=== PATIENT | female | born 1990 | race Caucasian/White ===

== ENCOUNTER → 2017-10-02 | Outpatient (CLI) | payer BC ==
--- NOTE | 2017-10-02 17:39 | Diagnostic Imaging Report ---
EXAMINATION: Pelvic ultrasound. INDICATION: Left ovarian pain. COMPARISON: There are no prior studies available for comparison. FINDINGS: The uterus is nongravid and not enlarged measuring 6.4 x 4.7 x 3.3 cm. The endometrial lining is thickened measuring 12 mm (normal 5 mm or less). This finding is nonspecific. Correlation with the patient's menstrual cycle would be recommended. There is no focal mass involving the uterus to suggest a fibroid. Both ovaries were identified. Each ovary contains a few subcentimeter follicles. There also appears to be a roughly 1 cm cyst arising from the right ovary. This does contain a few internal echoes suggesting that this cyst may be slightly complicated by infection and/or hemorrhage. There is no solid pelvic mass or free fluid collection noted. IMPRESSION: There is a small roughly 1 cm slightly complicated cyst associated with the right ovary. There is no acute pelvic abnormality noted otherwise. Dictated by: Dictated on workstation # [id number]
== END ==
LOC: RAD 14:28
PROVIDERS: ATTEND Nurse Practitioner Family
DX: N83.201 Unspecified ovarian cyst, right side (principal)
CPT/HCPCS: 76830; 76856

== ENCOUNTER 2021-01-15 11:09 | Emergency (ER) | payer BC ==
[~2021-01-15] VITALS: Ht 160 cm; Wt 68.0 kg
[2021-01-15 11:10] VITALS: BP 134/84
[2021-01-15] MEDS ORDERED: sulfamethoxazole (11:25)
--- NOTE | 2021-01-15 11:47 | ED GU-Female ---
General Chief Complaint: - Urinary Stated Complaint: UTI Nursing Triage Note: ARRIVED VIA AMB TO ROOM 06. CURRENTLY ON BACTRIM AND AZO FOR A UTI X5 DAYS. TODAY COMPLAINS OF DIZZINESS, HOT FLASHES, AND BURNING WITH URINATION. STATES URGENT CARE TOLD HER SHE WAS ON THE RIGHT MED ACCORDING TO HER CX REPORT. Source: patient Exam Limitations: no limitations History of Present Illness Date Seen by Provider: Jan 15, 2021 Time Seen by Provider: 11:45 Initial Comments To ER with reports of sudden onset of suprapubic discomfort, vaginal itching burning and whitish discharge. She denies nausea or vomiting. She had some flank pain yesterday but none today. She had a urinary tract infection diagnosed at urgent care on (today is Friday). She was prescribed Bactrim and was called by urgent care today to report that Bactrim is the correct antibiotic based on her culture report. Her symptoms seemed to improve until today when they suddenly recurred. Timing/Duration: constant Severity/Quality: moderate Location: unknown Activities at Onset: none Prior Genitourinary Problems: none Modifying Factors: Improves With Analgesics Allergies and Home Medications Allergies Coded Allergies: No Known Drug Allergies (Unverified , 06/01/16) Patient Home Medication List Home Medication List Reviewed: Yes Review of Systems Review of Systems Constitutional: see HPI EENTM: see HPI Respiratory: no symptoms reported Cardiovascular: no symptoms reported Genitourinary: see HPI, dysuria Musculoskeletal: no symptoms reported Skin: no symptoms reported Psychiatric/Neurological: No Symptoms Reported Endocrine: No Symptoms Reported Past Tvlvkry-Xcpyce-Lgfpvn Hx Patient Social History Tobacco Use?: No Substance use?: No Alcohol Use?: Yes Alcohol Frequency: Once in a while Immunizations Up To Date Tetanus Booster (TDap): Less than 5yrs Physical Exam Vital Signs Vital Signs - First Documented 01/15/21 11:10 Temp 36.1 Pulse 75 Resp 16 B/P (MAP) 134/84 (101) Pulse Ox 96 O2 Delivery Room Air Capillary Refill : Less Than 3 Seconds Height, Weight, BMI Height: 5'4" Weight: 125lbs. oz. 56.377399gs; 26.00 BMI Method:Estimated General Appearance: WD/WN, no apparent distress Neck: non-tender, full range of motion Cardiovascular: regular rate, rhythm, no murmur Respiratory: no respiratory distress, no accessory muscle use Gastrointestinal: normal bowel sounds, non tender, soft; No rebound, No tenderness Extremities: normal range of motion, non-tender Neurologic/Psychiatric: alert, normal mood/affect, oriented x 3 Skin: normal color, warm/dry Progress/Results/Core Measures Suspected Sepsis SIRS Temperature: Pulse: 75 Respiratory Rate: 16 Laboratory Tests 01/15/21 11:56: White Blood Count 6.2 Blood Pressure 134 /84 Mean: 101 Laboratory Tests 01/15/21 11:56: Creatinine 1.24, Platelet Count 306, Total Bilirubin 0.6 Results/Orders Lab Results Laboratory Tests Test 01/15/21 11:44 01/15/21 11:56 Range/Units Urine Color ORANGE Urine Clarity CLEAR Urine pH 5.5 5-9 Urine Specific [place] <=1.005 1.016-1.022 Urine Protein TRACE H NEGATIVE Urine Glucose (UA) TRACE H NEGATIVE Urine Ketones NEGATIVE NEGATIVE Urine Nitrite POSITIVE H NEGATIVE Urine Bilirubin 1+ H NEGATIVE Urine Urobilinogen 4.0 < = 1.0 MG/DL Urine Leukocyte Esterase NEGATIVE NEGATIVE Urine RBC (Auto) TRACE-I NEGATIVE Urine RBC RARE /HPF Urine WBC RARE /HPF Urine Squamous Epithelial Cells 2-5 /HPF Urine Crystals NONE /LPF Urine Bacteria TRACE /HPF Urine Casts NONE /LPF Urine Mucus NEGATIVE /LPF Urine Culture Indicated NO White Blood Count 6.2 4.3-11.0 10^3/uL Red Blood Count 4.32 3.80-5.11 10^6/uL Hemoglobin 13.9 11.5-16.0 g/dL Hematocrit 41 35-52 % Mean Corpuscular Volume 94 80-99 fL Mean Corpuscular Hemoglobin 32 25-34 pg Mean Corpuscular Hemoglobin Concent 34 32-36 g/dL Red Cell Distribution Width 11.7 10.0-14.5 % Platelet Count 306 130-400 10^3/uL Mean Platelet Volume 10.6 9.0-12.2 fL Immature Granulocyte % (Auto) 0 % Neutrophils (%) (Auto) 66 42-75 % Lymphocytes (%) (Auto) 23 12-44 % Monocytes (%) (Auto) 8 0-12 % Eosinophils (%) (Auto) 2 0-10 % Basophils (%) (Auto) 1 0-10 % Neutrophils # (Auto) 4.1 1.8-7.8 10^3/uL Lymphocytes # (Auto) 1.5 1.0-4.0 10^3/uL Monocytes # (Auto) 0.5 0.0-1.0 10^3/uL Eosinophils # (Auto) 0.1 0.0-0.3 10^3/uL Basophils # (Auto) 0.1 0.0-0.1 10^3/uL Immature Granulocyte # (Auto) 0.0 0.0-0.1 10^3/uL Sodium Level 135 135-145 MMOL/L Potassium Level 4.6 3.6-5.0 MMOL/L Chloride Level 103 98-107 MMOL/L Carbon Dioxide Level 22 21-32 MMOL/L Anion Gap 10 5-14 MMOL/L Blood Urea Nitrogen 15 7-18 MG/DL Creatinine 1.24 0.60-1.30 MG/DL Estimat Glomerular Filtration Rate 52 BUN/Creatinine Ratio 12 Glucose Level 90 70-105 MG/DL Calcium Level 9.5 8.5-10.1 MG/DL Corrected Calcium 8.5-10.1 MG/DL Total Bilirubin 0.6 0.1-1.0 MG/DL Aspartate Amino Transf (AST/SGOT) 30 5-34 U/L Alanine Aminotransferase (ALT/SGPT) 20 0-55 U/L Alkaline Phosphatase 56 40-136 U/L Total Protein 8.0 6.4-8.2 GM/DL Albumin 4.8 H 3.2-4.5 GM/DL My Orders Orders - LANCE DOMINGO APRN Ua Culture If Indicated (01/15/21 11:38) Cbc With Automated Diff (01/15/21 11:38) Comprehensive Metabolic Panel (01/15/21 11:38) Vital Signs/I&O 01/15/21 11:10 Temp 36.1 Pulse 75 Resp 16 B/P (MAP) 134/84 (101) Pulse Ox 96 O2 Delivery Room Air Capillary Refill : Less Than 3 Seconds 2 Blood Pressure Mean: 101 Departure Impression Primary Impression: Light-headedness Additional Impression: Vaginal itching Disposition: 01 HOME, SELF-CARE Condition: Stable Departure-Patient Inst. Decision time for Depature: 12:28 Referrals: [facility] (PCP/Family) Primary Care Physician Patient Instructions: NO INSTRUCTIONS GIVEN Add. Discharge Instructions: 1. Increase your fluid intake for the next few days. Take the Diflucan for the suspected yeast infection. Follow-up with your doctor next week. Return to ER for any worsening. All discharge instructions reviewed with patient and/or family. Voiced underst anding. Scripts Fluconazole (Diflucan) 150 Mg Tablet 150 MG PO DAILY, #3 TAB Prov: LANCE DOMINGO APRN 01/15/21 Work/School Note: Work Release Form Date Seen in the Emergency Department: Jan 15, 2021 Return to Work: Jan 16, 2021 LANCE DOMINGO APRN Jan 15, 2021 11:47
[2021-01-15 11:54] LABS: CLARITY,URINE CLEAR; COLOR,URINE ORANGE; GLUCOSE, URINE (UA) TRACE (NEGATIVE); KETONES,URINE NEGATIVE (NEGATIVE); LEUKOCYTE ESTERASE ,URINE NEGATIVE (NEGATIVE); NITRITE,URINE POSITIVE (NEGATIVE); PH,URINE 5.5 (5-9); PROTEIN,URINE TRACE (NEGATIVE)
[2021-01-15 12:04] LABS: BASOPHILS # (AUTO) 0.1 10^3/uL (0.0-0.1); BASOPHILS % (AUTO) 1 % (0-10); EOSINOPHILS # (AUTO) 0.1 10^3/uL (0.0-0.3); EOSINOPHILS % (AUTO) 2 % (0-10); HEMATOCRIT 41 % (35-52); HEMOGLOBIN 13.9 g/dL (11.5-16.0); LYMPHOCYTES # (AUTO) 1.5 10^3/uL (1.0-4.0); LYMPHOCYTES % (AUTO) 23 % (12-44); MEAN CORPUSCULAR HEMOGLOBIN 32 pg (25-34); MEAN CORPUSCULAR HGB CONC 34 g/dL (32-36); MEAN CORPUSCULAR VOLUME 94 fL (80-99); MEAN PLATELET VOLUME 10.6 fL (9.0-12.2); MONOCYTES # (AUTO) 0.5 10^3/uL (0.0-1.0); MONOCYTES % (AUTO) 8 % (0-12); NEUTROPHILS # (AUTO) 4.1 10^3/uL (1.8-7.8); NEUTROPHILS % (AUTO) 66 % (42-75); PLATELET COUNT 306 10^3/uL (130-400); WHITE BLOOD COUNT 6.2 10^3/uL (4.3-11.0)
[2021-01-15 12:07] LABS: BACTERIA,URINE TRACE /HPF; BILIRUBIN,URINE 1+ (NEGATIVE); RBC,URINE RARE /HPF; WBC,URINE RARE /HPF
[2021-01-15 12:17] LABS: ALBUMIN 4.8 GM/DL (3.2-4.5); CHLORIDE 103 MMOL/L (98-107); POTASSIUM 4.6 MMOL/L (3.6-5.0); SODIUM 135 MMOL/L (135-145)
[2021-01-15 12:18] LABS: CALCIUM 9.5 MG/DL (8.5-10.1)
[2021-01-15 12:19] LABS: GLUCOSE 90 MG/DL (70-105)
[2021-01-15 12:21] LABS: BILIRUBIN,TOTAL 0.6 MG/DL (0.1-1.0); CARBON DIOXIDE 22 MMOL/L (21-32)
[2021-01-15 12:23] LABS: ALKALINE PHOSPHATASE 56 U/L (40-136); CREATININE SERUM 1.24 MG/DL (0.60-1.30); GFR ESTIMATED 52
[2021-01-15 12:24] LABS: BUN/CREATININE RATIO 12
[2021-01-15 12:26] LABS: ALANINE AMINOTRANSFERASE 20 U/L (0-55)
[2021-01-15] MEDS ORDERED: FLUC150T PO (12:29)
== END 2021-01-15 12:32 | disposition home or self-care (01) ==
LOC: EDUNIT# 11:09 → ER 11:12
DX: L29.2 Pruritus vulvae (principal); R42 Dizziness and giddiness
CPT/HCPCS: 36415; 80053; 81000; 85025; 87088; 99282

== ENCOUNTER → 2021-06-26 | Outpatient (CLI) | payer BC ==
[~2021-06-26] MED LIST: FLUC150T PO; sulfamethoxazole
--- NOTE | 2021-06-26 13:54 | Diagnostic Imaging Report ---
INDICATION: survey. TECHNIQUE: Multiple real-time grayscale images were obtained over the gravid uterus. COMPARISON: None FINDINGS: There is a single live fetus in a cephalic presentation. heart rate was recorded at 150 bpm. Placenta is posterior. No previa is detected. Amniotic fluid volume is normal. Cervical length is 4.4 cm. kidneys, bladder and stomach are unremarkable. brain is unremarkable. There is a three-vessel cord with normal insertion. spine is unremarkable. heart anatomy is suboptimal due to position. Biometrical measurements are as follows: Biparietal 4.82 cm, age 20 weeks 5 days. Head circumference 18.83 cm, age 21 weeks 1 days. Abdominal circumference 14.82 cm, age 20 weeks 1 days. Femur length 3.59 cm, age 21 weeks 3 days. Sonographic estimate age: 20 weeks 6 days. Sonographic estimated date of delivery: 11/07/2020. Estimated Weight: 373 gm (+/- 55 gm). LMP percentile: 54%. heart rate: 150 beats per minute. number: 1 of 1. IMPRESSION: Single live IUP 20 weeks 6 days gestational age. Estimated date of confinement sonographically is 11/07/2020. A survey is unremarkable although heart anatomy was limited in evaluation due to position. Dictated by: Dictated on workstation # [id number]
== END ==
LOC: RAD 10:00
PROVIDERS: ATTEND Nurse Practitioner Women's Health
DX: Z34.02 Encounter for supervision of normal first pregnancy, second trimester (principal); Z3A.20 20 weeks gestation of pregnancy
CPT/HCPCS: 76805

== ENCOUNTER → 2021-10-23 | Outpatient (CLI) | payer BC ==
[~2021-10-23] MED LIST changes: +PREN1TAB44 PO
[2021-10-23 14:13] LABS: ALBUMIN 3.8 GM/DL (3.2-4.5); BILIRUBIN,TOTAL 0.3 MG/DL (0.1-1.0); CALCIUM 9.8 MG/DL (8.5-10.1); CREATININE SERUM 0.78 MG/DL (0.60-1.30); POTASSIUM 4.2 MMOL/L (3.6-5.0)
== END ==
LOC: LABNPT 12:25
PROVIDERS: ATTEND Obstetrics & Gynecology
DX: L29.9 Pruritus, unspecified (principal)
CPT/HCPCS: 80053; 83789

== ENCOUNTER 2021-10-31 12:21 | Outpatient (CLI) | payer BC ==
[~2021-10-31] VITALS: Ht 160 cm; Wt 84.5 kg
[~2021-10-31 12:21] MED LIST changes: -PREN1TAB44 PO
[2021-10-31 12:26] VITALS: BP 123/76
[2021-10-31 12:51] LABS: BILIRUBIN,URINE NEGATIVE (NEGATIVE); CLARITY,URINE CLEAR; COLOR,URINE YELLOW; GLUCOSE, URINE (UA) NEGATIVE (NEGATIVE); KETONES,URINE NEGATIVE (NEGATIVE); LEUKOCYTE ESTERASE ,URINE NEGATIVE (NEGATIVE); NITRITE,URINE NEGATIVE (NEGATIVE); PROTEIN,URINE NEGATIVE (NEGATIVE)
[2021-10-31 13:00] LABS: BACTERIA,URINE NEGATIVE /HPF; WBC,URINE RARE /HPF
[2021-10-31 13:08] VITALS: BP 123/76
[2021-10-31] MEDS ORDERED: PREN1TAB44 PO (13:12)
--- NOTE | 2021-11-01 08:18 | Physician Query-Final Dx ---
SHARIFA,11/01/21 0818: Clinic Account Progress/Dx Physician Query: Please give diagnosis Please include # weeks gestation Date of Service October 31, 2021 at 12:21 RADHA YE DO 11/01/21 0839: Clinic Account Progress/Dx DIAGNOSIS: Diagnosis 38 week IUP Leakage of fluid SHARIFA,JunNovember 01, 2021 08:18 RADHA YE DO November 01, 2021 08:39
== END 2021-10-31 13:30 | disposition home or self-care (01) ==
LOC: WSo 12:21 → LDRP 12:21 → WSo 13:30
PROVIDERS: ATTEND Obstetrics & Gynecology
DX: O42.92 Full-term premature rupture of membranes, unspecified as to length of time between rupture and onset of labor (principal); Z3A.38 38 weeks gestation of pregnancy
CPT/HCPCS: 81000; 84112; G0463; 99213

== ENCOUNTER 2021-11-11 19:00 | Inpatient (IN) | payer BC ==
[~2021-11-11] VITALS: Ht 160 cm; Wt 84.4 kg
[2021-11-11] VITALS (8 sets, daily range): BP systolic 86–134; BP diastolic 54–75
[~2021-11-11 19:00] MED LIST changes: +PREN1TAB44 PO
[2021-11-11] MEDS ORDERED: TERBUTALINE INJ 1 MG/ML (BRETHINE) AMP SC PRN (20:00)
[2021-11-11] MEDS ORDERED: LIDOCAINE/EPI 2% 1:200,00 (XYLOCAINE) 20 ML VIAL INJ PRN (20:00)
[2021-11-11] MEDS ORDERED: MINERAL OIL 30 ML TOP PRN (20:00)
[2021-11-11] MEDS ORDERED: NS IV 1000 ML 1,000 ML IV ONE (20:00)
[2021-11-11] MEDS ORDERED: NS IV 1000 ML 1,000 ML ONE (20:00)
[2021-11-11 20:05] LABS: BASOPHILS # (AUTO) 0.1 10^3/uL (0.0-0.1); BASOPHILS % (AUTO) 0 % (0-10); EOSINOPHILS # (AUTO) 0.1 10^3/uL (0.0-0.3); EOSINOPHILS % (AUTO) 1 % (0-10); HEMATOCRIT 34 % (35-52); HEMOGLOBIN 12.1 g/dL (11.5-16.0); LYMPHOCYTES % (AUTO) 23 % (12-44); MEAN CORPUSCULAR HEMOGLOBIN 33 pg (25-34); MEAN CORPUSCULAR HGB CONC 35 g/dL (32-36); MEAN CORPUSCULAR VOLUME 94 fL (80-99); MEAN PLATELET VOLUME 12.1 fL (9.0-12.2); MONOCYTES # (AUTO) 0.7 10^3/uL (0.0-1.0); MONOCYTES % (AUTO) 5 % (0-12); NEUTROPHILS # (AUTO) 9.4 10^3/uL (1.8-7.8); NEUTROPHILS % (AUTO) 70 % (42-75); PLATELET COUNT 222 10^3/uL (130-400); WHITE BLOOD COUNT 13.3 10^3/uL (4.3-11.0)
[2021-11-11] MEDS ORDERED: D5 LR IV SOLUTION 1,000 ML IV ONE (20:36)
[2021-11-11] MEDS: D5 LR IV SOLUTION 1,000 ML IV SCH (20:41)
[2021-11-11] MEDS: CATHETER FLUSH 10 ML SYR IV SCH (20:43)
[2021-11-11 21:44] LABS: BILIRUBIN,URINE NEGATIVE (NEGATIVE); CLARITY,URINE CLEAR; COLOR,URINE YELLOW; GLUCOSE, URINE (UA) NEGATIVE (NEGATIVE); KETONES,URINE NEGATIVE (NEGATIVE); LEUKOCYTE ESTERASE ,URINE NEGATIVE (NEGATIVE); NITRITE,URINE NEGATIVE (NEGATIVE); PROTEIN,URINE NEGATIVE (NEGATIVE)
[2021-11-11 21:53] LABS: BACTERIA,URINE TRACE /HPF
[2021-11-12] VITALS (85 sets, daily range): BP systolic 97–148; BP diastolic 53–86
[2021-11-12] MEDS: D5 LR IV SOLUTION 1,000 ML IV SCH ×3 (02:10→15:06)
[2021-11-12] MEDS: CATHETER FLUSH 10 ML SYR IV SCH ×2 (05:41→14:21)
[2021-11-12] MEDS ORDERED: OXYTOCIN PRE-MIX DRIP 500 ML IV SCH (08:00)
[2021-11-12] MEDS ORDERED: LIDOCAINE/EPI 2% 1:200,00 (XYLOCAINE) 10 ML VIAL INJ NR (08:30)
--- NOTE | 2021-11-12 09:19 | History & Physical-OB ---
OB - Chief Complaint & HPI Date/Time Date of Admission: Date of Admission: November 11, 2021 at 19:12 Date seen by a Provider: November 12, 2021 Time Seen by a Provider: 07:15 Chief Complaint/History OB-Reason for Admission/Chief: Induction of Labor Hx : 1 Hx Para: 0 Expected Date of Delivery: November 09, 2021 Gestational Age in Weeks: 40 Gestational Age in Days: 2 Indication for induction: post dates Admission Nurse Assessment Rev: Yes History of Labs GBS neg Allergies and Home Medications Allergies Coded Allergies: No Known Drug Allergies (Unverified , 06/01/16) Patient Home Medication List Home Medication List Reviewed: Yes Vit/Iron Fum/Folic AC ( Tablet) 28 Mg Iron-800 Mcg Tablet, 1 EACH PO DAILY, (Reported) Entered as Reported by: CYN TOBAR on 10/31/21 1312 OB - History Hx of Present Care: Yes Ultrasounds: Normal mid trimester US Obstetrical Complications: None Medical Complications: None Patient Past Medical History n/a Immunizations Influenza Vaccine Up-to-Date: Yes; Up-to-Date Tetanus Booster (TDap): Less than 5yrs OB - Admission Exam Physical Exam Vitals: Vital Signs 11/12/21 11/12/21 04:45 06:45 Temp 36.6 Pulse 71 Resp 16 B/P (MAP) 118/69 (85) O2 Delivery Room Air HEENT: NCAT Heart: Rhythm Normal Lungs: Clear Abdomen: Gravid Extremities: Normal Reflexes: Normal Cervical Dilatation: 1cm Effacement: 75% Station: -1 Membranes: Intact Heart Rate: 130's Accelerations: Accelerations Present Decelerations: No Decelerations Short Term Variability: Present Senior Living Variability: Average (6-25) Contractions on Admission: 6-10 Minutes Apart Intensity: Mild Garcia Scoring Tool (Modified) Dilation (cm): 1-2cm (1) Effacement (%): 51-79% (2) Descent/Station: -1,0 (2) Cervix Consistency: Soft (2) Cervix Position: Anterior (2) Subtract 1 point for: Nulliparity (-1) Garcia Score: 8 Labs Laboratory Tests Test 11/11/21 19:05 11/11/21 19:35 Range/Units Urine Color YELLOW Urine Clarity CLEAR Urine pH 6.0 5-9 Urine Specific [place] 1.020 1.016-1.022 Urine Protein NEGATIVE NEGATIVE Urine Glucose (UA) NEGATIVE NEGATIVE Urine Ketones NEGATIVE NEGATIVE Urine Nitrite NEGATIVE NEGATIVE Urine Bilirubin NEGATIVE NEGATIVE Urine Urobilinogen 0.2 < = 1.0 MG/DL Urine Leukocyte Esterase NEGATIVE NEGATIVE Urine RBC (Auto) NEGATIVE NEGATIVE Urine RBC NONE /HPF Urine WBC NONE /HPF Urine Squamous Epithelial Cells 2-5 /HPF Urine Crystals NONE /LPF Urine Bacteria TRACE /HPF Urine Casts NONE /LPF Urine Mucus NEGATIVE /LPF Urine Culture Indicated NO White Blood Count 13.3 H 4.3-11.0 10^3/uL Red Blood Count 3.64 L 3.80-5.11 10^6/uL Hemoglobin 12.1 11.5-16.0 g/dL Hematocrit 34 L 35-52 % Mean Corpuscular Volume 94 80-99 fL Mean Corpuscular Hemoglobin 33 25-34 pg Mean Corpuscular Hemoglobin Concent 35 32-36 g/dL Red Cell Distribution Width 12.5 10.0-14.5 % Platelet Count 222 130-400 10^3/uL Mean Platelet Volume 12.1 9.0-12.2 fL Immature Granulocyte % (Auto) 1 % Neutrophils (%) (Auto) 70 42-75 % Lymphocytes (%) (Auto) 23 12-44 % Monocytes (%) (Auto) 5 0-12 % Eosinophils (%) (Auto) 1 0-10 % Basophils (%) (Auto) 0 0-10 % Neutrophils # (Auto) 9.4 H 1.8-7.8 10^3/uL Lymphocytes # (Auto) 3.0 1.0-4.0 10^3/uL Monocytes # (Auto) 0.7 0.0-1.0 10^3/uL Eosinophils # (Auto) 0.1 0.0-0.3 10^3/uL Basophils # (Auto) 0.1 0.0-0.1 10^3/uL Immature Granulocyte # (Auto) 0.1 0.0-0.1 10^3/uL OB - Assessment/Plan/Diagnosis Assessment Assessment: induction of labor Admission Dx 31 yo @ 40 weeks Post date IOL GBS neg Admission Status: Inpatient Order (span 2 midnights) Reason for Inpatient Admission: IOL at 40 weeks Plan Plan: Induction Induction Method: per Misoprostol Protocol RADHA YE DO November 12, 2021 09:19
[2021-11-12] MEDS ORDERED: fentaNYL 2 mcg/ml BUPIVA 0.125 100 ML ONE (11:59)
[2021-11-12] MEDS ORDERED: fentaNYL INJ 100 MCG/2 ML AMP ONE (12:17)
[2021-11-12] MEDS ORDERED: BUPIVACAINE 0.25% 10 ML (SENSORCAINE) VIAL ONE (12:17)
[2021-11-12] MEDS ORDERED: LACTATED RINGERS 1,000 ML IV ONE (13:00)
[2021-11-12] MEDS: fentaNYL 2 mcg/ml BUPIVA 0.125 100 ML IV SCH ×2 (13:00→20:24)
[2021-11-12] MEDS ORDERED: CATHETER FLUSH 10 ML SYR IV PRN (13:00)
[2021-11-12] MEDS ORDERED: NALOXONE 0.4 MG/ML 1 ML (NARCAN) VIAL IV PRN ×2 (13:00→22:00)
[2021-11-12] MEDS ORDERED: LIDOCAINE/EPI 2% 1:200,00 (XYLOCAINE) 10 ML VIAL ONE (20:37)
[2021-11-12] MEDS ORDERED: OXYTOCIN PRE-MIX DRIP 500 ML IV ONE (20:38)
--- NOTE | 2021-11-12 21:54 | OB Labor & Delivery Record ---
L&D History Date of Service Date of Service: November 12, 2021 History Expected Date of Delivery: November 09, 2021 Gestational Age in Weeks: 40 Hx : 1 Hx Para: 0 Complications Events: Routine care Operative Indications (Cesarea: N/A-Vaginal Delivery Intrapartal Events: None L&D Stage1 Stage One Onset of Labor - Date: November 12, 2021 Monitors and Tracing Monitor Mode: External Heart Rate: 140 Monitor Accelerations: Uniform Monitor Decelerations: None Station: -2 Retirement Variability: Average (6-10) Short Term Variability: Present Presentation: Vertex Vital Signs VS - Last 72 Hours, by Label 11/11/21 11/11/21 11/11/21 11/11/21 19:11 19:11 20:45 21:15 Temp 36.7 36.7 Pulse 127 127 74 75 Resp 20 20 18 18 B/P (MAP) 134/75 (94) 121/73 (89) 111/55 (73) Pulse Ox 97 97 O2 Delivery Room Air Room Air Room Air Room Air 11/11/21 11/11/21 11/11/21 11/11/21 21:45 22:15 22:45 23:15 Temp 36.8 Pulse 76 65 66 76 Resp 16 16 16 16 B/P (MAP) 104/55 (71) 101/55 (70) 86/54 (65) 106/57 (73) O2 Delivery Room Air Room Air Room Air Room Air 11/11/21 11/12/21 11/12/21 11/12/21 23:45 00:15 00:45 01:15 Pulse 73 64 61 60 Resp 16 16 16 16 B/P (MAP) 102/59 (73) 101/61 (74) 106/67 (80) 119/79 (92) O2 Delivery Room Air Room Air Room Air Room Air 11/12/21 11/12/21 11/12/21 11/12/21 01:45 02:15 02:45 03:15 Temp 36.6 Pulse 66 58 58 61 Resp 16 16 16 16 B/P (MAP) 116/72 (87) 114/67 (83) 119/61 (80) 112/65 (81) O2 Delivery Room Air Room Air Room Air Room Air 11/12/21 11/12/21 11/12/2122 03:45 04:15 04:45 05:15 Temp 36.6 Pulse 43 65 40 61 Resp 16 16 16 16 B/P (MAP) 119/69 (86) 132/61 (84) 120/74 (89) 120/68 (85) O2 Delivery Room Air Room Air Room Air Room Air 11/12/21 11/12/21 11/12/21 11/12/21 05:45 06:15 06:45 07:15 Temp 36.8 Pulse 67 65 71 67 Resp 16 16 16 18 B/P (MAP) 99/54 (69) 97/53 (68) 118/69 (85) 108/67 (81) O2 Delivery Room Air Room Air Room Air Room Air 11/12/21 11/12/21 11/12/21 11/12/21 07:45 08:15 08:30 08:45 Pulse 69 60 74 66 Resp 18 18 18 18 B/P (MAP) 129/75 (93) 129/76 (93) 122/80 (94) 135/81 (99) Pulse Ox 98 O2 Delivery Room Air Room Air Room Air Room Air 11/12/21 11/12/21 11/12/21 11/12/21 09:00 09:15 09:30 09:45 Temp 36.6 Pulse 66 56 57 56 Resp 18 18 18 18 B/P (MAP) 129/86 (100) 128/78 (95) 129/84 (99) 121/74 (90) O2 Delivery Room Air Room Air Room Air Room Air 11/12/21 11/12/21 11/12/21 11/12/21 10:00 10:15 10:30 10:45 Pulse 76 42 63 69 Resp 20 20 20 20 B/P (MAP) 141/67 (91) 133/71 (91) 120/72 (88) 122/75 (91) O2 Delivery Room Air Room Air Room Air Room Air 11/12/21 11/12/21 11/12/21 11/12/21 11:00 11:15 11:30 12:00 Pulse 71 73 70 75 Resp 20 20 20 20 B/P (MAP) 122/75 (91) 136/78 (97) 124/77 (93) 132/78 (96) O2 Delivery Room Air Room Air Room Air Room Air 11/12/21 11/12/21 11/12/21 11/12/21 12:15 12:30 12:30 12:33 Pulse 72 72 83 83 Resp 20 20 20 20 B/P (MAP) 133/81 (98) 133/81 (98) 125/83 (97) 125/83 (97) Pulse Ox 100 O2 Delivery Room Air Room Air Room Air Room Air 11/12/21 11/12/21 11/12/21 11/12/21 12:36 12:39 12:41 12:44 Temp 36.7 Pulse 83 86 83 73 Resp 20 20 20 20 B/P (MAP) 122/77 (92) 126/72 (90) 139/55 (83) 106/66 (79) Pulse Ox 100 100 99 100 O2 Delivery Room Air Room Air Room Air Room Air 11/12/21 11/12/21 11/12/21 11/12/21 12:47 12:50 12:53 12:56 Pulse 76 90 82 86 Resp 20 20 20 20 B/P (MAP) 120/70 (87) 124/73 (90) 123/70 (87) 124/74 (91) Pulse Ox 100 100 98 98 O2 Delivery Room Air Room Air Room Air Room Air 11/12/21 11/12/21 11/12/21 11/12/21 12:59 13:15 13:30 13:45 Pulse 93 97 77 73 Resp 20 20 20 20 B/P (MAP) 131/77 (95) 133/79 (97) 129/68 (88) 128/70 (89) Pulse Ox 97 99 98 98 O2 Delivery Room Air Room Air Room Air Room Air 11/12/21 11/12/21 11/12/21 11/12/21 14:00 14:15 14:30 14:45 Pulse 77 69 68 80 Resp 20 20 20 20 B/P (MAP) 133/71 (91) 125/73 (90) 119/76 (90) 120/79 (93) Pulse Ox 98 98 100 100 O2 Delivery Room Air Room Air Room Air Room Air 11/12/21 11/12/21 11/12/21 11/12/21 15:00 15:15 15:30 15:45 Pulse 73 76 66 72 Resp 20 20 20 20 B/P (MAP) 117/70 (86) 126/78 (94) 125/73 (90) 120/70 (87) Pulse Ox 99 99 98 98 O2 Delivery Room Air Room Air Room Air Room Air 11/12/21 11/12/21 11/12/21 11/12/21 16:00 16:15 16:30 16:45 Temp 36.4 Pulse 83 76 76 77 Resp 20 20 20 20 B/P (MAP) 122/71 (88) 127/73 (91) 121/75 (90) 121/73 (89) Pulse Ox 99 99 99 100 O2 Delivery Room Air Room Air Room Air Room Air 11/12/21 11/12/21 11/12/21 11/12/21 17:00 17:15 17:30 17:45 Pulse 71 75 91 77 Resp 20 20 20 20 B/P (MAP) 129/60 (83) 125/66 (85) 126/73 (90) 112/65 (81) O2 Delivery Room Air Room Air Room Air Room Air 11/12/21 11/12/21 11/12/21 11/12/21 18:00 18:15 18:30 18:45 Pulse 86 85 77 78 Resp 20 20 20 20 B/P (MAP) 123/76 (92) 118/67 (84) 120/68 (85) 115/63 (80) O2 Delivery Room Air Room Air Room Air Room Air 11/12/21 11/12/21 11/12/21 11/12/21 19:00 19:15 19:30 19:45 Temp 37.4 Pulse 82 85 108 97 Resp 20 20 18 20 B/P (MAP) 123/60 (81) 125/64 (84) 133/78 (96) 124/71 (88) Pulse Ox 100 99 99 O2 Delivery Room Air Room Air Room Air Room Air 11/12/21 11/12/21 11/12/21 11/12/21 20:00 20:15 20:30 20:45 Pulse 92 86 83 98 Resp 18 20 20 20 B/P (MAP) 121/73 (89) 120/73 (89) 119/62 (81) 128/78 (95) Pulse Ox 100 99 99 99 O2 Delivery Room Air Room Air Room Air Room Air Rupture of Membranes Spontaneous Ruture of Membrane: No Amniotic Membrane Rupture Time: 0720 Amniotic Membrane Fluid Desc.: Clear Vaginal Bleeding Description: Normal Show Induction/Anesthesia Epidural Cath Placement - Time: 1233 Progress/Notes Patient admitted for post dates IOL last night, Misoprostol given 100 mcg x 1 dose followed by 4 hrs later 1 dose of 50 mg, she then was allow to rest overnight. AROM performed this AM, clear fluid noted. Pitocin augmentation started, and the pateint progressed with an epidural to complete and +1 station. L&D Stage2 Stage Two Stage II Date: November 12, 2021 Monitors and Tracing Monitor Mode: External Heart Rate: 140 Monitor Accelerations: Uniform Monitor Decelerations: Variable Retirement Variability: Average (6-10) Short Term Variability: Present Position: Right Occiput Anterior Presentation: Vertex Cord Descript/Complications Cord Vessel Description: 3 Vessels Delivery Type Infant Delivery Method: Spontaneous Vaginal Anterior Shoulder: Left Episiotomy/Perineal Laceration Laceraction(s)/Extensions: Yes Episiotomy Description: Midline, Vaginal Extension/lac, 1st degree Degree (describe repair) vaginal laceration repaired using 3-0 rapide in usual fashion. Condition of Delivery 1 minute Comment: 8 5 minute Comment: 9 Notes Live female infant weight pending Condition of Infant Condition of : Living Exam: No Observed Abnormalities Resuscitation Resuscitation: N/A - Spontaneous Resp L&D Stage3 Stage Three Stage III Date: November 12, 2021 Pictocin Pitocin Administration mu/min: 10 Pitocin ml/hr: 10 Pitocin Administration Comment: 30 mu wide open after delivery of placenta Placenta Delivery Placenta Delivery: Spontaneous Delivery Summary Summary Estimated blood loss (mL): 300 Attending at delivery: Rdaha Ye DO Condition of Delivery Examined: Cervix Examined, Uterus Explored Post Hemorrhage: No Condition of Mother stable Condition of Infant (s) stable RADHA YE DO November 12, 2021 21:54
[2021-11-12] MEDS: OXYTOCIN PRE-MIX DRIP 500 ML IV SCH ×2 (22:00→22:11)
[2021-11-12] MEDS ORDERED: DIBUCAINE 1% OINTMENT 30 GM TUBE TOP PRN (22:00)
[2021-11-12] MEDS ORDERED: BENZOCAINE/MENTHOL (DERMOPLAST) 56 ML CAN TP PRN (22:00)
[2021-11-12] MEDS ORDERED: WITCH HAZEL(TUCKS) 40 EA JAR TOP PRN (22:00)
[2021-11-12] MEDS ORDERED: MEASLES,MUMPS,RUBELLA 1 EA INJ SQ ONE (22:00)
[2021-11-12] MEDS ORDERED: HYDROcodone/APAP 5 MG/325 MG (LORTAB) TAB PO PRN (22:00)
[2021-11-12] MEDS ORDERED: TETANUS,DIPTH,PERTUSS P/F (BOOSTRIX) 0.5 ML VIAL IM ONE (22:00)
[2021-11-12] MEDS ORDERED: CATHETER FLUSH 10 ML SYR IV SCH (22:00)
[2021-11-13] VITALS: BP 122/58
[2021-11-13] MEDS: IBUPROFEN 600 MG (MOTRIN) TAB PO SCH ×5 (00:03→23:30)
[2021-11-13 04:00] VITALS: BP 114/63
[2021-11-13 05:43] LABS: BASOPHILS # (AUTO) 0.1 10^3/uL (0.0-0.1); BASOPHILS % (AUTO) 0 % (0-10); EOSINOPHILS # (AUTO) 0.1 10^3/uL (0.0-0.3); EOSINOPHILS % (AUTO) 0 % (0-10); HEMATOCRIT 33 % (35-52); HEMOGLOBIN 11.5 g/dL (11.5-16.0); LYMPHOCYTES # (AUTO) 2.4 10^3/uL (1.0-4.0); LYMPHOCYTES % (AUTO) 12 % (12-44); MEAN CORPUSCULAR HEMOGLOBIN 34 pg (25-34); MEAN CORPUSCULAR HGB CONC 35 g/dL (32-36); MEAN CORPUSCULAR VOLUME 95 fL (80-99); MEAN PLATELET VOLUME 11.9 fL (9.0-12.2); MONOCYTES # (AUTO) 1.4 10^3/uL (0.0-1.0); MONOCYTES % (AUTO) 7 % (0-12); NEUTROPHILS # (AUTO) 16.5 10^3/uL (1.8-7.8); NEUTROPHILS % (AUTO) 80 % (42-75); PLATELET COUNT 183 10^3/uL (130-400); WHITE BLOOD COUNT 20.7 10^3/uL (4.3-11.0)
[2021-11-13 09:00] VITALS: BP 117/67
[2021-11-13] MEDS: FERROUS SULF 325 MG (IRON) TAB PO SCH (09:31)
[2021-11-13] MEDS: DOCUSATE SODIUM 100 MG (COLACE) CAP PO SCH ×2 (09:31→20:37)
[2021-11-13] MEDS: PRENATAL VITAMIN 1 EA TAB PO SCH (09:32)
--- NOTE | 2021-11-13 09:55 | Postpartum Progress Note ---
Note Note Day # 1 Subjective: Patient is without complaints. Ambulating, voiding. Tolerating a regular diet without nausea or vomiting. Normal lochia. Pain is well controlled with oral pain medications. Physical Exam: General - Alert and oriented, no apparent distress Abdomen - Soft, appropriately tender to palpation, non-distended, fundus firm at umbilicus Extremities - no edema, negative Claire's bilaterally Assessment: Post- day # 1, status post vaginal delivery. Recovering well, hemodynamically stable Acute blood loss anemia Plan: Routine care. Encourage breast feeding. Encourage ambulation. Ferrous sulfate supplementation. Plan for discharge tomorrow Vitals - Labs Vital Signs - I&O Vital Signs Date Time Temp Pulse Resp B/P (MAP) Pulse Ox O2 Delivery O2 Flow Rate FiO2 11/13/21 04:00 36.8 92 20 114/63 (80) 99 Room Air 11/13/21 00:00 36.7 100 20 122/58 (79) Room Air 11/12/21 23:30 104 20 124/59 (80) Room Air 11/12/21 23:15 36.8 123 20 126/61 (82) Room Air 11/12/21 23:01 96 20 127/62 (83) Room Air 11/12/21 22:46 37.4 98 20 148/78 (101) Room Air 11/12/21 22:31 37.4 98 20 140/65 (90) Room Air 11/12/21 22:16 115 20 139/55 (83) Room Air 11/12/21 22:01 37.6 118 20 144/69 (94) Room Air 11/12/21 21:46 127 20 138/71 (93) Room Air 11/12/21 21:30 133 20 124/58 (80) Room Air 11/12/21 21:15 107 20 119/74 (89) Room Air 11/12/21 21:00 37.2 95 20 126/79 (95) 100 Room Air 11/12/21 20:45 98 20 128/78 (95) 99 Room Air 11/12/21 20:30 83 20 119/62 (81) 99 Room Air 11/12/21 20:15 86 20 120/73 (89) 99 Room Air 11/12/21 20:00 92 18 121/73 (89) 100 Room Air 11/12/21 19:45 97 20 124/71 (88) 99 Room Air 11/12/21 19:30 108 18 133/78 (96) 99 Room Air 11/12/21 19:15 37.4 85 20 125/64 (84) 100 Room Air 11/12/21 19:00 82 20 123/60 (81) Room Air 11/12/21 18:45 78 20 115/63 (80) Room Air 11/12/21 18:30 77 20 120/68 (85) Room Air 11/12/21 18:15 85 20 118/67 (84) Room Air 11/12/21 18:00 86 20 123/76 (92) Room Air 11/12/21 17:45 77 20 112/65 (81) Room Air 11/12/21 17:30 91 20 126/73 (90) Room Air 11/12/21 17:15 75 20 125/66 (85) Room Air 11/12/21 17:00 71 20 129/60 (83) Room Air 11/12/21 16:45 36.4 77 20 121/73 (89) 100 Room Air 11/12/21 16:30 76 20 121/75 (90) 99 Room Air 11/12/21 16:15 76 20 127/73 (91) 99 Room Air 11/12/21 16:00 83 20 122/71 (88) 99 Room Air 11/12/21 15:45 72 20 120/70 (87) 98 Room Air 11/12/21 15:30 66 20 125/73 (90) 98 Room Air 11/12/21 15:15 76 20 126/78 (94) 99 Room Air 11/12/21 15:00 73 20 117/70 (86) 99 Room Air 11/12/21 14:45 80 20 120/79 (93) 100 Room Air 11/12/21 14:30 68 20 119/76 (90) 100 Room Air 11/12/21 14:15 69 20 125/73 (90) 98 Room Air 11/12/21 14:00 77 20 133/71 (91) 98 Room Air 11/12/21 13:45 73 20 128/70 (89) 98 Room Air 11/12/21 13:30 77 20 129/68 (88) 98 Room Air 11/12/21 13:15 97 20 133/79 (97) 99 Room Air 11/12/21 12:59 93 20 131/77 (95) 97 Room Air 11/12/21 12:56 86 20 124/74 (91) 98 Room Air 11/12/21 12:53 82 20 123/70 (87) 98 Room Air 11/12/21 12:50 90 20 124/73 (90) 100 Room Air 11/12/21 12:47 76 20 120/70 (87) 100 Room Air 11/12/21 12:44 73 20 106/66 (79) 100 Room Air 11/12/21 12:41 36.7 83 20 139/55 (83) 99 Room Air 11/12/21 12:39 86 20 126/72 (90) 100 Room Air 11/12/21 12:36 83 20 122/77 (92) 100 Room Air 11/12/21 12:33 83 20 125/83 (97) 100 Room Air 11/12/21 12:30 83 20 125/83 (97) Room Air 11/12/21 12:30 72 20 133/81 (98) Room Air 11/12/21 12:15 72 20 133/81 (98) Room Air 11/12/21 12:00 75 20 132/78 (96) Room Air 11/12/21 11:30 70 20 124/77 (93) Room Air 11/12/21 11:15 73 20 136/78 (97) Room Air 11/12/21 11:00 71 20 122/75 (91) Room Air 11/12/21 10:45 69 20 122/75 (91) Room Air 11/12/21 10:30 63 20 120/72 (88) Room Air 11/12/21 10:15 42 20 133/71 (91) Room Air 11/12/21 10:00 76 20 141/67 (91) Room Air I & O 11/13/21 07:00 Intake Total 5135 ml Output Total 0 ml Balance 5135 ml Labs Laboratory Tests 11/13/21 05:09: White Blood Count 20.7H, Red Blood Count 3.43L, Hemoglobin 11.5, Hematocrit 33L, Mean Corpuscular Volume 95, Mean Corpuscular Hemoglobin 34, Mean Corpuscular Hemoglobin Concent 35, Red Cell Distribution Width 12.4, Platelet Count 183, Mean Platelet Volume 11.9, Immature Granulocyte % (Auto) 1, Neutrophils (%) (Auto) 80H, Lymphocytes (%) (Auto) 12, Monocytes (%) (Auto) 7, Eosinophils (%) (Auto) 0, Basophils (%) (Auto) 0, Neutrophils # (Auto) 16.5H, Lymphocytes # (Auto) 2.4, Monocytes # (Auto) 1.4H, Eosinophils # (Auto) 0.1, Basophils # (Auto) 0.1, Immature Granulocyte # (Auto) 0.2H DELMY BERRIOS MANAGER CARE MANAGEMENT November 13, 2021 09:55
--- NOTE | 2021-11-13 10:11 | Anesthesia-Regional Post-Op ---
Regional Patient Condition Mental Status: Alert, Oriented x3 Circulation: Same as Pre-Op Headache: Absent Sensation: Full Recovery Motor Block: Absent Post Op Complications Complications None Follow Up Care/Instructions Patient Instructions None needed. Anesthesia/Patient Condition Patient is doing well, no complaints, stable vital signs, no apparent adverse anesthesia problems. No complications reported per nursing. MARTIN DUGGAN CRNA November 13, 2021 10:11
[2021-11-13 12:15] VITALS: BP 114/58
[2021-11-13 16:25] VITALS: BP 123/63
[2021-11-13 20:12] VITALS: BP 122/66
[2021-11-14] VITALS: BP 126/71
[2021-11-14] MEDS: IBUPROFEN 600 MG (MOTRIN) TAB PO SCH (05:59)
[2021-11-14 06:05] VITALS: BP 119/55
[2021-11-14 07:35] VITALS: BP 116/67
[2021-11-14] MEDS: DOCUSATE SODIUM 100 MG (COLACE) CAP PO SCH (08:01)
[2021-11-14] MEDS: PRENATAL VITAMIN 1 EA TAB PO SCH (08:01)
[2021-11-14] MEDS: FERROUS SULF 325 MG (IRON) TAB PO SCH (08:01)
--- NOTE | 2021-11-14 08:45 | Discharge Inst-Women's Service ---
Discharge Inst-Women's Serv Depart Medication/Instructions New, Converted or Re-Newed RX: Transmitted to Pharmacy Final Diagnosis PPD 2 NVD Problems Reviewed?: Yes Consults/Follow Up Additional Follow Up: Yes Orders/Referrals Dr. Ye in 6 weeks Activity Activity: Activity as Tolerated Driving Instructions: No Driving for 1 Week NO SMOKING: NO SMOKING Nothing Inside Vagina: No Douching, No Robinson, No Tampons Diet Discharge Diet: No Restrictions Symptoms to Report to : Bleeding Excessive, Pain Increased, Fever Over 101 Degrees F, Vaginal Bleeding Increase, Questions/Concerns For Any Problems or Questions: Contact Your Physician RADHA YE DO November 14, 2021 8:45 am
[2021-11-14] MEDS ORDERED: DOCU100C37 PO (08:46)
[2021-11-14] MEDS ORDERED: BENZ78AE5 TP (08:46)
[2021-11-14] MEDS ORDERED: ACHD5005 PO ×2 (08:46→11:12)
[2021-11-14] MEDS ORDERED: IBUP-844 PO (08:46)
--- NOTE | 2021-11-14 08:47 | Postpartum Progress Note ---
Note Note Day # 2 Subjective: Patient is without complaints. Ambulating, voiding. Tolerating a regular diet without nausea or vomiting. Normal lochia. Pain is well controlled with oral pain medications. Objective: Physical Exam: General - Alert and oriented, no apparent distress Abdomen - Soft, appropriately tender to palpation, non-distended, fundus firm at umbilicus Extremities - no edema, negative Claire's bilaterally Assessment: PPD 2 NVD Plan: Routine care. Encourage breast feeding. Encourage ambulation. Ferrous sulfate supplementation. Plan for discharge today Vitals - Labs Vital Signs - I&O Vital Signs Date Time Temp Pulse Resp B/P (MAP) Pulse Ox O2 Delivery O2 Flow Rate FiO2 11/14/21 07:35 36.5 76 18 116/67 (83) 98 Room Air 11/14/21 06:05 36.3 89 18 119/55 (76) 98 Room Air 11/14/21 00:00 36.4 80 18 126/71 (89) 98 Room Air 11/13/21 20:12 36.2 53 18 122/66 (84) 98 Room Air 11/13/21 16:25 36.4 66 18 123/63 (83) 97 Room Air 11/13/21 12:15 36.4 95 18 114/58 (76) 97 Room Air 11/13/21 09:00 36.4 87 18 117/67 (84) 96 Room Air RADHA YE DO November 14, 2021 8:47 am
[2021-11-14 09:14] VITALS: BP 116/67
== END 2021-11-14 10:45 | disposition home or self-care (01) | DRG 806 ==
LOC: LDRP 19:12
PROVIDERS: ADMIT Obstetrics & Gynecology; ATTEND Obstetrics & Gynecology
PROC: 10E0XZZ Delivery of Products of Conception, External Approach (ICD-10-PCS; principal; 2021-11-12)
PROC: 10907ZC Drainage of Amniotic Fluid, Therapeutic from Products of Conception, Via Natural or Artificial Opening (ICD-10-PCS; 2021-11-12)
PROC: 0HQ9XZZ Repair Perineum Skin, External Approach (ICD-10-PCS; 2021-11-12)
DX: O48.0 Post-term pregnancy (principal); D62 Acute posthemorrhagic anemia; Z37.0 Single live birth; Z3A.40 40 weeks gestation of pregnancy; O70.0 First degree perineal laceration during delivery; O90.81 Anemia of the puerperium
CPT/HCPCS: 36415; 81000; 85025; 86850; 86900; 86901

== ENCOUNTER 2022-11-24 08:44 | Emergency (ER) | payer BC ==
[~2022-11-24 08:44] MED LIST changes: +ACHD5005 PO; +BENZ78AE5 TP; +DOCU100C37 PO; +IBUP-844 PO
[2022-11-24 08:59] LABS: CLARITY,URINE CLOUDY; COLOR,URINE RED; GLUCOSE, URINE (UA) TRACE (NEGATIVE); KETONES,URINE TRACE (NEGATIVE); LEUKOCYTE ESTERASE ,URINE 2+ (NEGATIVE); NITRITE,URINE POSITIVE (NEGATIVE); PROTEIN,URINE 3+ (NEGATIVE)
--- NOTE | 2022-11-24 09:01 | ED GU-Female ---
General Chief Complaint: - Reproductive Stated Complaint: PAIN WITH URINATION Nursing Triage Note: PT AMB TO [facility] 7 WITH COMPLAINT OF CHILLS, BURNING WHEN URINATING AT THAT STARTED LAST NIGHT. Source: patient Exam Limitations: no limitations History of Present Illness Date Seen by Provider: November 24, 2022 Time Seen by Provider: 08:52 Initial Comments 32yo female to the ER with a complaint of burning with urination. SHe states she noticed symptoms yesterday afternoon. She has had a little "chills" but no measured fever. No nausea or abdominal pain. Post 1 year. Started menstrual period 2 days ago. No abnormal vaginal discharge or itching. No other complaints. Timing/Duration: yesterday Severity/Quality: mild Location: urethral Radiation: none Activities at Onset: none Prior Genitourinary Problems: similar symptoms (x1) Sexual [place] History: single partner Associated Symptoms: fever/chills (chills without fever) Allergies and Home Medications Allergies Coded Allergies: No Known Drug Allergies (Unverified , 06/01/16) Patient Home Medication List Home Medication List Reviewed: Yes Benzocaine/Menthol (Dermoplast Pain Relieving [place]) 20 %-0.5 % Aerosol, 56 EA TP UD PRN for PAIN- SEE INSTRUCTIONS Prescribed by: RADHA YE on 11/14/21 0846 Docusate Sodium (Docusate Sodium) 100 Mg Capsule, 100 MG PO BID PRN for CONSTIPATION-1ST LINE Prescribed by: RADHA YE on 11/14/21 0846 Hydrocodone Bit/Acetaminophen (HYDROcodone/APAP 5 MG/325 MG TAB) 1 Tab Tab, 1 TAB PO Q4H PRN for PAIN-BREAKTHROUGH Prescribed by: RADHA YE on 11/14/21 1113 Ibuprofen (Ibu) 600 Mg Tablet, 600 MG PO Q6HR Prescribed by: RADHA YE on 11/14/21 0846 Vit/Iron Fum/Folic AC ( Tablet) 28 Mg Iron-800 Mcg Tablet, 1 EACH PO DAILY, (Reported) Entered as Reported by: CYN TOBAR on 10/31/21 1312 Review of Systems Review of Systems Constitutional: see HPI, chills EENTM: no symptoms reported Respiratory: no symptoms reported Cardiovascular: no symptoms reported Gastrointestinal: no symptoms reported Genitourinary: burning : No LMP: November 22, 2022 Musculoskeletal: no symptoms reported All Other Systemes Reviewed Negative Unless Noted: Yes Past Dpneknj-Rmnjty-Zrhoyo Hx Patient Social History Tobacco Use?: No Use of E-Cig and/or Vaping dev: No Substance use?: No Alcohol Use?: No Pt feels they are or have been: No Immunizations Up To Date Tetanus Booster (TDap): Less than 5yrs Physical Exam Vital Signs Vital Signs - First Documented 11/24/22 08:47 Temp 36.0 Pulse 83 Resp 16 B/P (MAP) 117/82 (94) Pulse Ox 100 O2 Delivery Room Air Capillary Refill : Less Than 3 Seconds Height, Weight, BMI Height: 5'4" Weight: 125lbs. oz. [id number]; 32.96 BMI Method:Estimated General Appearance: WD/WN, no apparent distress HEENT: PERRL/EOMI Cardiovascular: regular rate, rhythm Respiratory: lungs clear, normal breath sounds, no respiratory distress, no accessory muscle use Extremities: normal range of motion Neurologic/Psychiatric: alert, normal mood/affect Skin: normal color, warm/dry Progress/Results/Core Measures Suspected Sepsis SIRS Temperature: Pulse: 83 Respiratory Rate: 16 Blood Pressure 117 /82 Mean: 94 Results/Orders Lab Results Laboratory Tests Test 11/24/22 08:49 Range/Units Urine Color RED H Urine Clarity CLOUDY Urine pH 7.0 5-9 Urine Specific Fisher 1.020 1.016-1.022 Urine Protein 3+ H NEGATIVE Urine Glucose (UA) TRACE H NEGATIVE Urine Ketones TRACE H NEGATIVE Urine Nitrite POSITIVE H NEGATIVE Urine Bilirubin 1+ H NEGATIVE Urine Urobilinogen 2.0 < = 1.0 MG/DL Urine Leukocyte Esterase 2+ H NEGATIVE Urine RBC (Auto) 3+ H NEGATIVE Urine RBC TNTC H /HPF Urine WBC 25-50 H /HPF Urine Squamous Epithelial Cells 2-5 /HPF Urine Crystals NONE /LPF Urine Bacteria TRACE /HPF Urine Casts NONE /LPF Urine Mucus NEGATIVE /LPF Urine Culture Indicated YES My Orders Orders - ELEUTERIO DURAN MD Urinalysis (11/24/22 08:53) Urine Culture (11/24/22 08:49) Vital Signs/I&O 11/24/22 08:47 Temp 36.0 Pulse 83 Resp 16 B/P (MAP) 117/82 (94) Pulse Ox 100 O2 Delivery Room Air Capillary Refill : Less Than 3 Seconds Blood Pressure Mean: 94 Departure Impression Primary Impression: Urinary tract infection Qualified Codes: N30.01 - Acute cystitis with hematuria Disposition: HOME, SELF-CARE Condition: Stable Departure-Patient Inst. Decision time for Depature: 09:15 Referrals: SAIGE FRANCIS DO (PCP/Family) Primary Care Physician Patient Instructions: Urinary Tract Infection, Adult (DC) Add. Discharge Instructions: Drink lots of water to flush kidneys and stay well hydrated (needed with this antibiotic, too). Bactrim DS 1 tablet twice a day for 3 days. If you develop a fever, abdominal pain or vomiting return to the Emergency Department for re-evaluation or please follow up with Dr Francis. Over the counter "AZO" (pyridium) for bladder spasms/pain (follow packaging instructions). Scripts Sulfamethoxazole/Trimethoprim (Bactrim Ds Tablet) 1 Each Tablet 1 EACH PO BID for 3 Days, #6 TAB Prov: ELEUTERIO DURAN MD 11/24/22 Copy Copies To 1: SAIGE FRANCIS KATHRYN M MD November 24, 2022 09:00
[2022-11-24 09:10] LABS: BILIRUBIN,URINE 1+ (NEGATIVE); RBC,URINE TNTC /HPF; WBC,URINE 25-50 /HPF
[2022-11-24 09:11] LABS: BACTERIA,URINE TRACE /HPF
[2022-11-24] MEDS ORDERED: SULF1TAB38 PO (09:17)
[2022-11-24 09:22] VITALS: BP 117/82
== END 2022-11-24 09:22 | disposition home or self-care (01) ==
LOC: EDUNIT# 08:44 → ER 08:45
DX: N39.0 Urinary tract infection, site not specified (principal)
CPT/HCPCS: 81000; 87077; 87088; 99282